=== PATIENT | male | born 1965 | race Caucasian/White ===

== ENCOUNTER 2020-11-30 13:32 | Emergency (ER) | payer OTHER ==
[2020-11-30 15:16] LABS: BASOPHIL 0.5 % (0-2); EOSINOPHIL 0.8 % (0-5); HGB 14.5 g/dl (13.2-18.0); LYMPHOCYTE 18.3 % (15-48); MCH 30.2 pg (25.0-31.0); MCHC 33.7 g/dL (32.0-36.0); MCV 89.6 fL (78.0-100.0); MONOCYTE 7.7 % (0-12); MPV 10.1 fL (6.0-9.5); NEUTROPHIL 72.6 % (41-80); NRBC 0; PLT 290 K/uL (150-400); RDW 12.5 % (11.5-14.0); WBC 7.7 K/uL (4.0-10.5)
[2020-11-30 15:16] LABS: BILIRUBIN NEGATIVE (NEGATIVE); BLOOD 1+ Ery/uL (NEGATIVE); CLARITY CLEAR (CLEAR); COLOR YELLOW (YELLOW); GLUCOSE (U) NORMAL (NORMAL); LEUKOCYTES NEGATIVE Leu/uL (NEGATIVE); NITRITE NEGATIVE (NEGATIVE); PROTEIN NEGATIVE (NEGATIVE); SPECIFIC GRAVITY <=1.005 (1.001-1.030); UROBILINOGEN 0.2 mg/dL (0.2-1.0)
[2020-11-30 15:20] LABS: ALBUMIN 4.2 g/dL (3.4-5.0); BILIRUBIN - TOTAL 0.8 mg/dL (0.2-1.0); CREATININE 1.21 mg/dL (0.67-1.17); GLOBULIN (CALCULATION) 4.3 g/dL; POTASSIUM 4.4 mmol/L (3.5-5.1); TOTAL PROTEIN 8.5 g/dL (6.4-8.2)
[2020-11-30] MEDS ORDERED: NORCO 5-325 TA1 EACH PO (20:32)
[2020-11-30] MEDS ORDERED: ZOFRAN4 M1 PO (20:36)
[2020-11-30] MEDS ORDERED: PRINIVIL20 MG PO (20:36)
[2020-11-30] MEDS ORDERED: FLOMAX0.4 MG PO (20:36)
== END 2020-11-30 20:45 | disposition home or self-care (01) ==
LOC: FER 13:32
PROVIDERS: Physician Assistant
DX: N13.2 Hydronephrosis with renal and ureteral calculous obstruction (principal)
CPT/HCPCS: 36415; 80053; 81001; 85025